=== PATIENT | female | born 1990 | race Asian ===

== ENCOUNTER 2017-02-02 19:48 | Emergency (ER) | payer OTHER ==
[~2017-02-02] VITALS: Ht 160 cm; Wt 49.4 kg
[2017-02-02 20:28] LABS: BLOOD UREA NITROGEN 9 mg/dL (7-18)
[2017-02-02 21:49] VITALS: BP 98/60
== END 2017-02-02 21:51 | disposition home or self-care (01) ==
LOC: ED 21:50
DX: Z32.01 Encounter for pregnancy test, result positive (principal)
CPT/HCPCS: 36415; 76801; 80048; 81003; 82040; 84702; 85025

== ENCOUNTER 2017-02-05 18:05 | Emergency (ER) | payer OTHER ==
[~2017-02-05] VITALS: Ht 160 cm; Wt 48.4 kg
[2017-02-05 18:06] VITALS: BP 119/76
== END 2017-02-05 19:58 | disposition home or self-care (01) ==
LOC: ED 19:52
DX: O26.891 Other specified pregnancy related conditions, first trimester (principal)
CPT/HCPCS: 36415; 76801; 84702

== ENCOUNTER 2017-04-03 06:24 | Emergency (ER) | payer OTHER ==
[~2017-04-03] VITALS: Ht 160 cm; Wt 50.5 kg
[2017-04-03] MEDS ORDERED: PRENATAL (06:55)
[2017-04-03] MEDS ORDERED: DIPHENHYDRAMINE 50 MG/ML, 1ML ONE (06:59)
[2017-04-03] MEDS ORDERED: METOCLOPRAMIDE 5 MG/ML, 2ML ONE (06:59)
[2017-04-03] MEDS ORDERED: SODIUM CHLORIDE 0.9% 1,000ML IVBOLUS ONE (07:00)
[2017-04-03] MEDS ORDERED: DIPHENHYDRAMINE 50 MG/ML, 1ML IVPush ONE (07:00)
[2017-04-03] MEDS ORDERED: METOCLOPRAMIDE 5 MG/ML, 2ML IVPush ONE (07:00)
[2017-04-03] MEDS ORDERED: SODIUM CHLORIDE FLUSH 10ML SYR IVF ONE (07:00)
[2017-04-03 09:52] VITALS: BP 108/80
== END 2017-04-03 09:54 | disposition home or self-care (01) ==
LOC: ED 08:11
DX: O29.41 Spinal and epidural anesthesia induced headache during pregnancy, first trimester (principal); O26.891 Other specified pregnancy related conditions, first trimester; R05 Cough; Z3A.13 13 weeks gestation of pregnancy
CPT/HCPCS: 81001; 87086; 96361; 96374; 96375; 99284; J1200; J2765; J7030

== ENCOUNTER 2017-05-29 03:15 | Outpatient (CLI) | payer OTHER ==
[~2017-05-29] VITALS: Ht 160 cm; Wt 55.0 kg
[~2017-05-29 03:15] MED LIST: PRENATAL
== END 2017-05-29 05:34 | disposition home or self-care (01) ==
LOC: LDOP 03:15
PROVIDERS: ATTEND Obstetrics & Gynecology
DX: O36.8120 Decreased fetal movements, second trimester, not applicable or unspecified (principal); O26.892 Other specified pregnancy related conditions, second trimester; R42 Dizziness and giddiness; R10.30 Lower abdominal pain, unspecified; Z3A.21 21 weeks gestation of pregnancy
CPT/HCPCS: 59025; 81001; 87086; 99211; G0463

== ENCOUNTER 2017-10-01 04:15 | Outpatient (CLI) | payer OTHER ==
[~2017-10-01] VITALS: Ht 160 cm; Wt 63.6 kg
== END 2017-10-01 05:40 | disposition home or self-care (01) ==
LOC: LDOP 04:15
PROVIDERS: ATTEND Obstetrics & Gynecology
DX: O62.9 Abnormality of forces of labor, unspecified (principal); Z3A.39 39 weeks gestation of pregnancy
CPT/HCPCS: 59025; 99211; G0463

== ENCOUNTER 2017-10-02 15:22 | Inpatient (IN) | payer OTHER ==
[~2017-10-02] VITALS: Ht 160 cm; Wt 65.0 kg
[2017-10-02] MEDS ORDERED: OXYTOCIN 30U/ 0.9% NaCL 500ML 500 ML IV PRN (15:44)
[2017-10-02] MEDS ORDERED: D5%-LACTATED RINGERS 1,000 ML IV SCH (15:44)
[2017-10-02] MEDS ORDERED: OXYTOCIN 30U/ 0.9% NaCL 500ML 500 ML IV ONE (15:44)
[2017-10-02] MEDS ORDERED: FENTANYL PF 100 MCG/2ML IVPush PRN (16:00)
[2017-10-02] MEDS ORDERED: SODIUM CITRATE/CITRIC ACID 30 ML UDC PO PRN (16:00)
[2017-10-02] MEDS ORDERED: PLEASE ENTER HEIGHT AND WEIGHT MC SCH (16:00)
[2017-10-02] MEDS ORDERED: ALUMINUM/MAG/SIMETHICONE 30 ML UDC PO PRN (16:00)
[2017-10-02] MEDS ORDERED: CALCIUM CARBONATE 500 MG TAB.CHEW PO PRN (16:00)
[2017-10-02] MEDS ORDERED: ONDANSETRON 2MG/ML, 2ML IVPush PRN (16:00)
[2017-10-02] MEDS: LACTATED RINGERS 1,000 ML IV SCH ×4 (16:05→20:47)
[2017-10-02] MEDS ORDERED: LIDOCAINE 1%, 20ML ONE (16:09)
[2017-10-02] MEDS ORDERED: OXYTOCIN 30U/ 0.9% NaCL 500ML 500 ML ONE (16:09)
[2017-10-02] MEDS ORDERED: MISOPROSTOL 200 MCG TABLET ONE (16:09)
[2017-10-02] MEDS ORDERED: NEWBORN KIT ONE (16:09)
[2017-10-02 16:19] LABS: BASOPHILS # (AUTO) 0.03 x10^3/uL (0-0.1); BASOPHILS % (AUTO) 0 % (0-1); EOSINOPHILS # (AUTO) 0.03 x10^3/uL (0-0.4); EOSINOPHILS % (AUTO) 0 % (1-7); LYMPHOCYTES # (AUTO) 2.25 x10^3/uL (1-3.4); LYMPHOCYTES % (AUTO) 17 % (22-44); MD NO; MEAN CORPUSCULAR HEMOGLOBIN 33.7 pg (27.0-34.8); MEAN CORPUSCULAR HGB CONC 34.4 g/dL (32.4-35.8); MEAN PLATELET VOLUME 8.8 fL (7.4-10.4); MONOCYTES # (AUTO) 0.82 x10^3/uL (0.2-0.8); MONOCYTES % (AUTO) 6 % (2-9); NEUTROPHILS # (AUTO) 10.32 x10^3/uL (1.8-6.8); NEUTROPHILS % (AUTO) 77 % (42-75); PLATELET COUNT 207 x10^3/uL (130-400); RED BLOOD COUNT 4.31 x10^6/uL (3.82-5.3); RED CELL DISTRIBUTION WIDTH 13.6 % (9.6-15.2)
[2017-10-02 16:21] VITALS: BP 126/77
[2017-10-02] MEDS ORDERED: FENTANYL PF 100 MCG/2ML ONE (16:37)
[2017-10-02 16:49] LABS: MICROSCOPIC AUTO
[2017-10-02] MEDS ORDERED: FENTANYL/BUPIV./NS/PF 250 ML EPIDCONT SCH (16:57)
[2017-10-02] MEDS ORDERED: BUPIVACAINE/PF 0.25% ONE (16:58)
[2017-10-02] MEDS ORDERED: FENTANYL/BUPIV./NS/PF 250 ML EPIDCONT ONE ×2 (16:58→17:00)
[2017-10-02] MEDS ORDERED: NALOXONE 0.4 MG/ML, 1ML IVPush PRN (17:00)
[2017-10-02] MEDS ORDERED: BUPIVACAINE 0.25% ONE (17:00)
[2017-10-02] MEDS ORDERED: LACTATED RINGERS 1,000 ML IVBOLUS PRN (17:00)
[2017-10-02] MEDS ORDERED: EPHEDRINE 50 MG/ML, 1ML IVPush PRN (17:00)
[2017-10-02] MEDS ORDERED: ONDANSETRON 2MG/ML, 2ML ONE (17:40)
[2017-10-03] MEDS ORDERED: OXYTOCIN 30U/ 0.9% NaCL 500ML 500 ML IV SCH (02:57)
[2017-10-03] MEDS ORDERED: MISOPROSTOL 200 MCG TABLET PR PRN (03:00)
[2017-10-03] MEDS ORDERED: OXYcodone/APAP 5/325MG TABLET PO PRN ×2 (03:00)
[2017-10-03] MEDS ORDERED: ONDANSETRON 2MG/ML, 2ML IV PRN (03:00)
[2017-10-03] MEDS ORDERED: OXYTOCIN 30U/ 0.9% NaCL 500ML 500 ML ONE (03:01)
[2017-10-03] MEDS: OXYTOCIN 30U/ 0.9% NaCL 500ML 500 ML IV SCH ×3 (03:04→22:57)
[2017-10-03 03:41] LABS: ALBUMIN 2.2 g/dL (3.4-5.0); ANION GAP 12 mmol/L (5-15); CALCIUM 8.1 mg/dL (8.5-10.1); CHLORIDE 107 mmol/L (98-107)
[2017-10-03 03:45] LABS: ALANINE AMINOTRANSFERASE 12 U/L (12-78); ALKALINE PHOSPHATASE 160 U/L (45-117); BILIRUBIN,TOTAL 0.9 mg/dL (0.2-1.0); CREATININE 0.62 mg/dL (0.55-1.02); TOTAL PROTEIN 5.7 g/dL (6.4-8.2)
[2017-10-03 04:45] VITALS: BP 100/67
[2017-10-03 07:40] VITALS: BP 97/65
[2017-10-03] MEDS: LACTATED RINGERS 1,000 ML IV SCH ×2 (08:57→16:57)
[2017-10-03] MEDS: PRENATAL VIT/IRON/FA 1 EACH TABLET PO SCH (09:28)
[2017-10-03] MEDS: IBUPROFEN 600 MG TABLET PO PRN ×2 (09:28→16:13)
[2017-10-03] MEDS: DOCUSATE 100 MG CAPSULE PO PRN (09:28)
[2017-10-03 11:40] LABS: MEAN CORPUSCULAR HEMOGLOBIN 33.3 pg (27.0-34.8); MEAN CORPUSCULAR HGB CONC 33.7 g/dL (32.4-35.8); MEAN CORPUSCULAR VOLUME 98.8 fL (80-100); MEAN PLATELET VOLUME 8.3 fL (7.4-10.4); PLATELET COUNT 179 x10^3/uL (130-400); RED BLOOD COUNT 3.49 x10^6/uL (3.82-5.3); RED CELL DISTRIBUTION WIDTH 13.6 % (9.6-15.2)
[2017-10-03 12:00] VITALS: BP 99/58
[2017-10-03 12:00] LABS: MD YES
[2017-10-03 12:01] LABS: <PLATELET ESTIMATE> ADEQUATE; <PLT MORPHOLOGY> NORMAL PLT MORPH; <RBC MORPHOLOGY> NORMAL; BAND#(MANUAL) 1.52 x10^3/uL; BANDS%(MANUAL) 8 % (0-7); LYMPH#(MANUAL) 3.23 x10^3/uL (1-3.4); LYMPHS% (MANUAL) 17 % (22-44); MONOS#(MANUAL) 1.33 x10^3/uL (0.3-2.7); MONOS% (MANUAL) 7 % (2-9); SEG#(MANUAL) 12.92 x10^3/uL (1.8-6.8); SEGS% (MANUAL) 68 % (42-75)
[2017-10-03 16:37] VITALS: BP 99/61
[2017-10-03 20:00] VITALS: BP 88/53
[2017-10-04] MEDS: LACTATED RINGERS 1,000 ML IV SCH ×2 (00:57→07:48)
[2017-10-04] MEDS: DOCUSATE 100 MG CAPSULE PO PRN (06:18)
[2017-10-04] MEDS: PRENATAL VIT/IRON/FA 1 EACH TABLET PO SCH (07:19)
[2017-10-04 07:32] VITALS: BP 108/76
[2017-10-04] MEDS: OXYTOCIN 30U/ 0.9% NaCL 500ML 500 ML IV SCH (07:48)
[2017-10-04] MEDS: IBUPROFEN 600 MG TABLET PO PRN (10:27)
[2017-10-04] MEDS ORDERED: IBUP-1222 PO (13:59)
== END 2017-10-04 15:05 | disposition home or self-care (01) | DRG 774 ==
LOC: LDOP 15:22 → LDIP 15:44 → 2NW 10-03 04:35
PROVIDERS: ADMIT Obstetrics & Gynecology; ATTEND Obstetrics & Gynecology
PROC: 0KQM0ZZ Repair Perineum Muscle, Open Approach (ICD-10-PCS; principal; 2017-10-03)
PROC: 10E0XZZ Delivery of Products of Conception, External Approach (ICD-10-PCS; 2017-10-03)
PROC: 3E0R3BZ Introduction of Anesthetic Agent into Spinal Canal, Percutaneous Approach (ICD-10-PCS; 2017-10-03)
PROC: 00HU33Z Insertion of Infusion Device into Spinal Canal, Percutaneous Approach (ICD-10-PCS; 2017-10-03)
DX: O76 Abnormality in fetal heart rate and rhythm complicating labor and delivery (principal); O72.1 Other immediate postpartum hemorrhage; O70.1 Second degree perineal laceration during delivery; Z37.0 Single live birth
CPT/HCPCS: 36415; 80053; 81001; 85025; 86850; 86900; J2405; J3010; J3490; J2590; J7120